=== PATIENT | female | born 1995 | race Caucasian/White ===

== ENCOUNTER 2019-05-10 08:11 | Emergency (ER) | payer BC ==
[~2019-05-10] VITALS: Ht 167.6 cm; Wt 53.5 kg
[2019-05-10 08:13] VITALS: BP 112/70
--- NOTE | 2019-05-10 08:15 | NUR ---
PATIENT TO BED 4
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
[2019-05-10 08:27] VITALS: BP 112/70
--- NOTE | 2019-05-10 08:27 | NUR ---
MD CHOPRA AT [facility] EVALUATING PT
--- NOTE | 2019-05-10 08:34 | NUR ---
PT STATES SHE TOOK HER BLOOD SUGAR THIS MORNING AND IT WAS 206. SHE DID NOT TAKE HER INSULIN TODAY.
== END 2019-05-10 08:35 | disposition home or self-care (01) ==
LOC: MED 08:11
DX: L73.8 Other specified follicular disorders (principal); E10.9 Type 1 diabetes mellitus without complications; Z90.89 Acquired absence of other organs
CPT/HCPCS: 99283